=== PATIENT | male | born 1945 | race Hispanic/Latino ===

== ENCOUNTER 2021-08-20 09:58 | Day surgery (SDC) | payer MEDICARE ==
[2021-08-20] MEDS ORDERED: HYDROmorphone 1 MG/1 ML INJ IV PRN (10:36)
--- NOTE | 2021-08-20 10:36 | Anesthesia Day of Surgery ---
Anesthesia Day of Surgery - Day of Surgery Patient Examined: Yes Patient H&P Reviewed: Yes Patient is NPO: Yes Cardiac Clearance: Yes
--- NOTE | 2021-08-20 10:36 | Anesthesia Consultation ---
Anesthesia Consult and Med Hx Date of service: 08/20/21 - Airway Anesthetic Teeth Evaluation: Good ROM Head & Neck: Adequate Mental/Hyoid Distance: Adequate Mallampati Class: Class II Intubation Access Assessment: Probably Good - Pulmonary Exam CTA: Yes - Cardiac Exam Cardiac Exam: RRR - Pre-Operative Health Status ASA Pre-Surgery Classification: ASA3 Proposed Anesthetic Plan: General - Pulmonary Hx Smoking: No Hx Respiratory Symptoms: No - Cardiovascular System Hx Hypertension: Yes Hx Coronary Artery Disease: Yes (s/p 5v CABG 10yrs ago; recent nml EF and stress test) Hx Percutaneous Transluminal Coronary Angioplasty (PTCA): No Hx Cardia Arrhythmia: No Hx Valvular Heart Disease: No - Central Nervous System CVA: No - Endocrine Hx Renal Disease: No Hx Liver Disease: No Hx Insulin Dependent Diabetes: No Hx Non-Insulin Dependent Diabetes: No Hx Thyroid Disease: No - Hematic Hx Anemia: No - Other Systems Hx Obesity: No - Additional Comments Anesthesia Medical History Comments: No hx anesthetic complications.
[2021-08-20] MEDS ORDERED: FAMOTIDINE 20 MG/2 ML INJ IV NR (10:37)
[2021-08-20] MEDS ORDERED: FAMOTIDINE 20 MG/2 ML INJ IV ONE (10:51)
[2021-08-20] MEDS ORDERED: LACTATED RINGERS 1,000 ML IV SCH (11:00)
[2021-08-20] MEDS ORDERED: oxyCODONE /ACETAMINOPHEN 5-325MG TAB PO PRN (11:00)
[2021-08-20] MEDS ORDERED: ONDANSETRON 4 MG/2 ML INJ IV PRN (11:00)
[2021-08-20] MEDS ORDERED: HEPARIN 5,000 UNIT/1 ML VIAL SUB-Q NR (11:30)
[2021-08-20] MEDS ORDERED: ACETAMINOPHEN IV 1,000 MG/100 ML BOTTLE IV NR (12:00)
[2021-08-20] MEDS ORDERED: ceFAZolin/STERILE WATER 2 GM/20 ML SYRINGE IV NR (12:00)
[2021-08-20] MEDS ORDERED: MIDAZOLAM 2 MG/2 ML INJ ONE (13:05)
[2021-08-20] MEDS ORDERED: dexAMETHasone 20 MG/5 ML VIAL ONE (13:05)
[2021-08-20] MEDS ORDERED: fentaNYL 100 MCG/2 ML INJ ONE (13:05)
[2021-08-20] MEDS ORDERED: propofoL 200 MG/20 ML VIAL IV ONE (13:05)
[2021-08-20] MEDS ORDERED: LIDOCAINE MPF (2%) 20 MG/1 ML VIAL 5 ML ONE (13:05)
[2021-08-20] MEDS ORDERED: ROCURONIUM 50 MG/5 ML INJ IV ONE (13:06)
[2021-08-20] MEDS ORDERED: KETAMINE/STERILE WATER 50 MG/ML SYRINGE ONE (13:06)
[2021-08-20] MEDS ORDERED: ONDANSETRON 4 MG/2 ML INJ ONE (13:06)
[2021-08-20] MEDS ORDERED: BUPIVACAINE/PF (0.25%) 2.5 MG/ML 30 ML VIAL INFILTRATI ONE ×2 (13:59→14:46)
[2021-08-20] MEDS ORDERED: ePHEDrine SULFATE 50 MG/1 ML INJ ONE (14:09)
[2021-08-20] MEDS ORDERED: NEOSTIGMINE 10MG/10 ML INJ MDV ONE (14:45)
[2021-08-20] MEDS ORDERED: GLYCOPYRROLATE 0.4 MG/2 ML INJ ONE (14:45)
[2021-08-20] MEDS ORDERED: SODIUM CHLORIDE 0.9% IRRIG SOLN 2000 ML IR ONE (14:47)
[2021-08-20] MEDS ORDERED: SODIUM CHLORIDE 0.9% IRR 1,500 ML BOTTLE IR ONE (14:50)
[2021-08-20] MEDS ORDERED: SUGAMMADEX SODIUM 200 MG/2 ML VIAL IV ONE (14:54)
[2021-08-20] MEDS ORDERED: KETOROLAC 30 MG/1 ML INJ ONE (15:27)
[2021-08-20] MEDS ORDERED: PHENYLEPHRINE/NS 1,000 MCG/10 ML SYRINGE (OR USE) IV ONE (15:27)
--- NOTE | 2021-08-20 16:24 | Procedure Note ---
Date of procedure: 08/20/21 Pre-op diagnosis: 1) Chronic cholecystitis 2) Umbilical hernia Post-op diagnosis: same Procedure: 1) Laparoscopic cholecystectomy 2) Open umbilical hernia repair Description of procedure: Pt was placed supine on the OR table. GETA was administered. Abdomen was prepped and draped. Proposed trocar sites were infiltrated with 10 ml of 0.5% Marcaine. A small infraumbilical incision was made. The hernia sac was excised down to the level of the fascia. A Remberto port was inserted into the peritoneal cavity and pneumoperitoneum established. 10 mm subxiphoid, 5 mm RUQ and 5 mm right lateral ports were inserted into the peritoneal cavity under direct vision. Pt was placed head and right side up. Fundus of the gallbladder was grasped and was retracted cephalad. The cystic duct, cystic artery and neck of the gallbladder were skeletonized. The critical view of safety was obtained. The cystic duct was milked towards the gallbladder and the cystic duct and artery clipped. The cystic duct and artery were then divided. Gallbladder was dissected off of it's hepatic fossa with the Bovie. Gallbladder was placed in an endobag and the endobag removed via the umbilical fascial defect. Remberto port was replaced and irrigation fluid used during the procedure was aspirated from De León's pouch and the subhepatic space. Upper abdominal ports were removed with no bleeding identified from the port entry sites under low pressure. The umbilical hernia was then repaired with several interrupted sutures of 1-0 Ethibond. Umbilical dermis was tacked to the fascial repair with a single suture of 3-0 Vicryl. Skin incisions were closed with run mark subcuticular sutures of 4-0 Monocryl. Skin glue was applied to all the incisions. Pt was extubated in the OR and was taken to PACU in stable condition. Anesthesia: GETA Surgeon: GARY REGALADO Estimated blood loss: 50-100ml Pathology: list (Gallbladder and gallstones) Specimen disposition: to lab Condition: stable Disposition: PACU
--- NOTE | 2021-08-20 17:31 | Post Anesthesia Evaluation ---
- Post Anesthesia Evaluation Patient Participated: Yes Airway Patent: Yes Stable Respiratory Function: Yes Nausea/Vomiting: No Temp > 96.8F: Yes Pain Manageable: Yes Adequeate Hydration: Yes Anesthesia Complications: No
[2021-08-20 21:20] VITALS: BP 121/76
== END 2021-08-20 09:59 | disposition home or self-care (01) ==
LOC: OR 09:58
PROVIDERS: ATTEND Surgery
DX: K80.10 Calculus of gallbladder with chronic cholecystitis without obstruction (principal); K42.9 Umbilical hernia without obstruction or gangrene; I25.10 Atherosclerotic heart disease of native coronary artery without angina pectoris; I10 Essential (primary) hypertension; Z87.01 Personal history of pneumonia (recurrent); Z79.899 Other long term (current) drug therapy; Z79.82 Long term (current) use of aspirin; Z96.643 Presence of artificial hip joint, bilateral; Z98.890 Other specified postprocedural states
CPT/HCPCS: 47562; 49585; J0131; J0690; J1100; J1644; J1885; J2250; J2370; J2405; J2704; J3010; J3490; J7120; 88304; J1815; J2710